=== PATIENT | female | born 1980 | race Caucasian/White ===

== ENCOUNTER 2016-07-21 12:25 | Emergency (ER) | payer OTHER ==
[~2016-07-21] VITALS: Ht 157.5 cm; Wt 108.9 kg
[~2016-07-21 12:25] MED LIST: DOXYCYCLINE HY100 M2 PO; FLAGYL500 MG PO
--- NOTE | 2016-07-21 12:53 | ED GI/GU/ABDOMINAL COMPLAINT ---
History of Present Illness General Chief Complaint: Abdominal Pain/Flank Pain Stated Complaint: ABD PAIN Source: patient Exam Limitations: no limitations Vital Signs & Intake/Output Vital Signs & Intake/Output Vital Signs Date Time Temp Pulse Resp B/P Pulse O2 O2 Flow FiO2 Ox Delivery Rate 07/21 1508 97.2 70 16 134/81 98 Room Air 07/21 1230 95.9 78 18 140/90 99 Room Air Allergies Coded Allergies: amoxicillin (Intermediate, RASH 01/21/16) Reconcile Medications Doxycycline Hyclate 100 MG CAPSULE 1 CAP PO BID prophylaxis Metronidazole (Flagyl) 500 MG TABLET 1 TAB PO TID prophylaxis Ondansetron (Zofran Odt) 4 MG TAB.RAPDIS 1 TAB SL TID NAUSEA Oxycodone HCl/Acetaminophen (Percocet 5-325 MG Tablet) 5 MG-325 MG TABLET 1-2 TAB PO Q6P PRN PAIN Triage Note: C/O UPPER ABDOMINAL PAIN X 4 HOURS, PAIN IS STEADY SHARP AND BURNING. VOMITED X 2 DAY. Triage Nurses Notes Reviewed? yes ? n Is pt currently ? No Onset: Abrupt Duration: hour(s): (830), constant, getting worse Timing: recent history Quality/Severity: moderate, sharpness, severe Location: right upper quadrant Activities at Onset: none No Modifying Factors: none HPI: 36-year-old female comes into emergency room with persistent right upper quadrant pain has been going on since 8:30 this morning sudden onset while she was driving to work. Some self-induced vomiting to see if it would help with the symptoms. Denies any change in bowel movement. Denies any fever. Denies any prior history. Previous history of . Denies any other associated symptoms. Past History Travel History Traveled to [place] past 21 day No Medical History Any Pertinent Medical History? see below for history Neurological: NONE Tetanus Vaccine: 01/21/16 Surgical History Surgical History: non-contributory Psychosocial History What is your primary language Thai Tobacco Use: Never used ETOH Use: occasional use Family History Hx Contributory? No Review of Systems Review of Systems Constitutional: Reports: no symptoms. EENTM: Reports: no symptoms. Respiratory: Reports: no symptoms. Cardiovascular: Reports: no symptoms. GI: Reports: see HPI. Genitourinary: Reports: no symptoms. Musculoskeletal: Reports: no symptoms. Skin: Reports: no symptoms. Neurological/Psychological: Reports: no symptoms. Hematologic/Endocrine: Reports: no symptoms. Immunologic/Allergic: Reports: no symptoms. All Other Systems: Reviewed and Negative Physical Exam Physical Exam General Appearance: well developed/nourished, no apparent distress, alert Head: atraumatic, normal appearance Eyes: Bilateral: normal appearance, EOMI. Ears, Nose, Throat, Mouth: hearing grossly normal, moist mucous membrane Neck: normal inspection, full range of motion Respiratory: normal breath sounds, no respiratory distress Cardiovascular: regular rate/rhythm Gastrointestinal: soft Back: normal inspection Extremities: normal range of motion Neurologic/Psych: awake, alert, oriented x 3, normal gait, normal mood/affect Skin: intact, normal color Core Measures ACS in differential dx? No Severe Sepsis Present: No Septic Shock Present: No Progress Differential Diagnosis: appendicitis, biliary colic, cholecystitis, diverticulitis, ectopic , gastritis, hepatitis, hernia, ischemic bowel, ovarian cyst, ovarian torsion, pancreatitis, PID/cervicitis, peptic ulcer, PUD/ GERD, perforated viscous, SBO, threatened AB, UTI/pyelo Plan of Care: Orders Procedure Date/time Status URINE 07/21 1253 Complete URINALYSIS 07/21 1253 Complete LIPASE 07/21 1253 Complete COMPREHENSIVE METABOLIC PANEL 07/21 1253 Complete CBC WITHOUT DIFFERENTIAL 07/21 1253 Complete AMYLASE 07/21 1253 Complete Laboratory Tests 07/21/16 1313: Anion Gap 11, Estimated GFR > 60, BUN/Creatinine Ratio 21.7, Glucose 98, Calcium 9.0, Total Bilirubin 0.5, AST 16, ALT 32, Alkaline Phosphatase 52, Total Protein 6.9, Albumin 4.2, Globulin 2.7, Albumin/Globulin Ratio 1.6, Amylase 39, Lipase 53, CBC w Diff NO MAN DIFF REQ, RBC 4.85, MCV 86.5, MCH 28.8, RDW 14.0, MPV 7.9, Gran % 80.2 H, Lymphocytes % 13.6 L, Monocytes % 4.3, Eosinophils % 1.5, Basophils % 0.4, Absolute Granulocytes 8.6 H, Absolute Lymphocytes 1.4, Absolute Monocytes 0.5, Absolute Eosinophils 0.2, Absolute Basophils 0, PUBS MCHC 33.3 07/21/16 1301: Urine Color YEL, Urine Clarity CLEAR, Urine pH 6.0, Ur Specific Marshall >= 1.030 , Urine Protein 100 H, Urine Ketones NEG, Urine Nitrite NEG, Urine Bilirubin NEG, Urine Urobilinogen 0.2, Ur Leukocyte Esterase NEG, Ur Microscopic SEDIMENT EXAMINED, Urine RBC 3-5, Ur Epithelial Cells FEW, Urine Hemoglobin LARGE H, Urine Glucose NEG, Urine Test NEGATIVE Diagnostic Imaging: Viewed by Me: CT Scan, Ultrasound. Discussed w/RAD: CT Scan, Ultrasound. Radiology Impression: SERVICE DATE: 07/21/16 EXAM TYPE: CAT - CT ABD & PELVIS W IV CONTRAST EXAMINATION: CT ABDOMEN AND PELVIS WITH CONTRAST CLINICAL INFORMATION: Abdominal pain. COMPARISON: None TECHNIQUE: Multidetector volumetric imaging was performed of the abdomen and pelvis before and after the IV administration of 95 mL of Optiray 320 intravenous contrast. Sagittal and coronal reformatted images were obtained on the technologist's workstation. DLP: 1189 mGy-cm FINDINGS: LUNG BASES: The visualized lung bases are unremarkable. LIVER, GALLBLADDER, AND BILIARY TREE: The liver is normal in size, shape, and attenuation. No focal hepatic lesion or biliary ductal dilatation is present. The gallbladder is unremarkable with no evidence of radiopaque gallstones, gallbladder wall thickening, or obvious pericholecystic inflammatory changes. PANCREAS: Unremarkable. SPLEEN: Unremarkable. ADRENAL GLANDS: Unremarkable. KIDNEYS AND URETERS: The kidneys are normal in size, shape, and attenuation. No hydronephrosis, hydroureter, or calculi seen. No perinephric stranding. BLADDER: Unremarkable. GASTROINTESTINAL TRACT: Borderline thickening of the appendix more likely reflecting normal variation than appendicitis. No surrounding inflammatory change. Large bowel normal. Small bowel normal. Stomach normal. ABDOMINAL WALL: No significant hernia is appreciated. LYMPH NODES: Normal. VASCULAR: Unremarkable. PELVIC VISCERA: Slightly heterogeneous appearing uterus with at least 2 intramural or subserosal masses along the anterior body the largest measuring approximately 1.5 cm. There is additional heterogeneous mass within or extending into the endometrial canal. While this most likely reflects a submucosal fibroid, intrauterine cannot be entirely excluded. There is a small amount of fluid within the endometrial canal. 1.5 cm simple cyst left ovary. OSSEOUS STRUCTURES: Unremarkable. IMPRESSION: Borderline thickening of the appendix most likely reflects normal variation than appendicitis. There is no inflammatory changes in the surrounding soft tissues. Fibroid uterus. There is heterogeneous density within the endometrial canal with small amount of fluid in the endometrial canal while this most likely reflects a submucosal fibroid or polyp. However, intrauterine cannot be entirely excluded. Recommend test to exclude this possibility if not already done. Also consider follow-up ultrasound to evaluate for endometrial polyp and/or fibroid. DICTATED BY: KALANI JACOMEDIANNE , SERVICE DATE: 07/21/16 EXAM TYPE: US - US- LIMITED ABDOMEN EXAMINATION: US ABDOMEN LIMITED CLINICAL INFORMATION: Right upper quadrant pain. Evaluate for gallstones.. COMPARISON: None TECHNIQUE: Real- time imaging of the right upper quadrant abdominal viscera. FINDINGS: PANCREAS: The majority of the pancreas is obscured by bowel gas. The visualized portion of the pancreatic head/neck is unremarkable. LIVER: The liver demonstrates normal size, contour and echogenicity. No focal lesion or intrahepatic biliary duct dilatation. GALLBLADDER: Normal. The gallbladder is physiologically distended without evidence of stones, sludge, polyps, wall thickening or pericholecystic fluid. COMMON DUCT: The visualized common hepatic duct is 3-4 mm diameter. The common bile duct is not well seen (obscured by bowel gas). RIGHT KIDNEY: Normal. No hydronephrosis. No renal calculi or focal parenchymal lesions. The kidney measures 10.4 cm in maximum dimension. FREE FLUID: None. IMPRESSION: No acute findings in the examined right upper quadrant of the abdomen. No evidence of cholelithiasis or cholecystitis. DICTATED BY: VESTA AGUAYO MD DATE/TIME DICTATED:07/21/161343 MET[employer] PRODUCTS VIEWER:FAWN Initial ED EKG: none Comments: 07/21/2016 4:46:41 PM Patient clinically looks well. Nontoxic-appearing patient feels much better after IV medications. no Longer in any pain. Repeat exam benign. Patient referred to gastroenterology. Return if any other concerns worsening symptoms. Patient understands and agrees with plan of care. Departure Departure Disposition: HOME OR SELF CARE Condition: Stable Clinical Impression Primary Impression: Abdominal pain Referrals: WILFRED JACOME,AMOL Shipman (PCP/Family) Additional Instructions: Take Percocet and Zofran ODT as prescribed. Follow-up with rn emergency provided. Return if any other concerns worsening symptoms. Please go over all results of today's visit with your primary care doctor. Contact your primary care doctor to let them know you were here in the emergency room. There may be nonspecific findings which may not be related to your visit today here in the emergency room but may require further evaluation and chronic monitoring by your primary care doctor. If you had a laceration today the chance of foreign body always remains. You should follow-up with your primary care doctor for recheck in 3-5 days for a wound check. If you had an x-ray done there is a chance that a fracture could have been missed on initial read and you should follow-up with your primary care doctor for repeat x-rays if symptoms persist. If your blood pressure was elevated here in the emergency room please have rechecked by her primary care doctor within the next 48 hours by your primary care doctor. If you were prescribed a narcotic here in the emergency room or any type of controlled substances you're not allowed to drive while taking this medication or operate any type of heavy machinery. Narcotics can make you feel lightheaded dizziness nausea and can cause constipation. You may need to pickers material handlers a stool softener. Thank you for choosing [facility] emergency room. Please return to the emergency room immediately if you have any other concerns worsening of symptoms. Departure Forms: Customer Survey General Discharge Information Prescriptions: Current Visit Scripts Oxycodone HCl/Acetaminophen (Percocet 5-325 MG Tablet) 1-2 TAB PO Q6P PRN PAIN #10 TAB Ondansetron (Zofran Odt) 1 TAB SL TID #10 TAB
[2016-07-21 13:19] LABS: ABSOLUTE BASOPHIL COUNT 0 /CUMM (0.0-0.2); ABSOLUTE EOSINOPHIL COUNT 0.2 /CUMM (0.0-0.7); ABSOLUTE GRANULOCYTE CT 8.6 /CUMM (1.4-6.5); ABSOLUTE LYMPH COUNT 1.4 /CUMM (1.2-3.4); ABSOLUTE MONOCYTE COUNT 0.5 /CUMM (0.10-0.60); BASOPHIL % 0.4 % (0.0-2.0); EOSINOPHIL % 1.5 % (0-5); GRANULOCYTE % 80.2 % (42.2-75.2); MEAN CORPUSCULAR HGB 28.8 PG (27.0-31.0); MEAN CORPUSCULAR HGB CONC 33.3 G/DL (33.0-37.0); MEAN CORPUSCULAR VOLUME 86.5 FL (81.0-99.0); MEAN PLATELET VOLUME 7.9 FL (7.4-10.4); PLATELET COUNT 264 /CUMM (130-400); RED BLOOD CELL CT 4.85 /CUMM (4.20-5.40); WHITE BLOOD CELL COUNT 10.7 /CUMM (4.8-10.8)
--- NOTE | 2016-07-21 13:50 | ULTRASOUND REPORT ---
EXAMINATION: US ABDOMEN LIMITED CLINICAL INFORMATION: Right upper quadrant pain. Evaluate for gallstones.. COMPARISON: None TECHNIQUE: Real-time imaging of the right upper quadrant abdominal viscera. FINDINGS: PANCREAS: The majority of the pancreas is obscured by bowel gas. The visualized portion of the pancreatic head/neck is unremarkable. LIVER: The liver demonstrates normal size, contour and echogenicity. No focal lesion or intrahepatic biliary duct dilatation. GALLBLADDER: Normal. The gallbladder is physiologically distended without evidence of stones, sludge, polyps, wall thickening or pericholecystic fluid. COMMON DUCT: The visualized common hepatic duct is 3-4 mm diameter. The common bile duct is not well seen (obscured by bowel gas). RIGHT KIDNEY: Normal. No hydronephrosis. No renal calculi or focal parenchymal lesions. The kidney measures 10.4 cm in maximum dimension. FREE FLUID: None. IMPRESSION: No acute findings in the examined right upper quadrant of the abdomen. No evidence of cholelithiasis or cholecystitis.
--- NOTE | 2016-07-21 16:00 | CT SCAN REPORT ---
EXAMINATION: CT ABDOMEN AND PELVIS WITH CONTRAST CLINICAL INFORMATION: Abdominal pain. COMPARISON: None TECHNIQUE: Multidetector volumetric imaging was performed of the abdomen and pelvis before and after the IV administration of 95 mL of Optiray 320 intravenous contrast. Sagittal and coronal reformatted images were obtained on the technologist's workstation. DLP: 1189 mGy-cm FINDINGS: LUNG BASES: The visualized lung bases are unremarkable. LIVER, GALLBLADDER, AND BILIARY TREE: The liver is normal in size, shape, and attenuation. No focal hepatic lesion or biliary ductal dilatation is present. The gallbladder is unremarkable with no evidence of radiopaque gallstones, gallbladder wall thickening, or obvious pericholecystic inflammatory changes. PANCREAS: Unremarkable. SPLEEN: Unremarkable. ADRENAL GLANDS: Unremarkable. KIDNEYS AND URETERS: The kidneys are normal in size, shape, and attenuation. No hydronephrosis, hydroureter, or calculi seen. No perinephric stranding. BLADDER: Unremarkable. GASTROINTESTINAL TRACT: Borderline thickening of the appendix more likely reflecting normal variation than appendicitis. No surrounding inflammatory change. Large bowel normal. Small bowel normal. Stomach normal. ABDOMINAL WALL: No significant hernia is appreciated. LYMPH NODES: Normal. VASCULAR: Unremarkable. PELVIC VISCERA: Slightly heterogeneous appearing uterus with at least 2 intramural or subserosal masses along the anterior body the largest measuring approximately 1.5 cm. There is additional heterogeneous mass within or extending into the endometrial canal. While this most likely reflects a submucosal fibroid, intrauterine cannot be entirely excluded. There is a small amount of fluid within the endometrial canal. 1.5 cm simple cyst left ovary. OSSEOUS STRUCTURES: Unremarkable. IMPRESSION: Borderline thickening of the appendix most likely reflects normal variation than appendicitis. There is no inflammatory changes in the surrounding soft tissues. Fibroid uterus. There is heterogeneous density within the endometrial canal with small amount of fluid in the endometrial canal while this most likely reflects a submucosal fibroid or polyp. However, intrauterine cannot be entirely excluded. Recommend test to exclude this possibility if not already done. Also consider follow-up ultrasound to evaluate for endometrial polyp and/or fibroid.
[2016-07-21] MEDS ORDERED: ZOFRAN ODT4 M1 SL (16:26)
[2016-07-21] MEDS ORDERED: PERCOCET 5-3251 EACH PO (16:26)
[2016-07-21 16:56] VITALS: BP 134/80
== END 2016-07-21 16:56 ==
LOC: ERH 12:25
PROVIDERS: Physician Assistant Medical
DX: R10.11 Right upper quadrant pain (principal)
CPT/HCPCS: 74177; 81001; 81025; 96374; 96375; J2405